=== PATIENT | male | born 1995 | race Caucasian/White ===

== ENCOUNTER 2016-07-02 22:48 | Emergency (ER) | payer OTHER ==
[~2016-07-02] VITALS: Ht 190.5 cm; Wt 77.3 kg
[2016-07-03 00:09] LABS: HEMATOCRIT 40.6 % (38.0-50.0); MCHC 35.5 G/DL (30.0-36.0); MCV 90.2 FL (86-99); MEAN PLAT.VOLUME 10.7 uM^3 (9.0-12.4); PLATELET COUNT 222 K/uL (156-360); RBC DIS.WIDTH-CV 11.3 % (11.8-14.6); RBC DIS.WIDTH-SD 37.2 % (39-53); WHITE BLOOD COUNT 8.5 K/uL (4.1-10.2)
[2016-07-03 00:22] LABS: CHLORIDE 108 mEq/L (99-109); POTASSIUM 3.6 mEq/L (3.7-5.4); SODIUM 141 mEq/L (136-147)
[2016-07-03 00:24] LABS: GLUCOSE 92 mg/dL (70-99)
[2016-07-03 00:25] LABS: ANION GAP 11 MEQ/L (2-14)
[2016-07-03 00:28] LABS: GFR ESTIMATE (CALCULATED) > 59 mL/min/; UREA NITROGEN (BUN) 15 mg/dL (9-23)
[2016-07-03 00:30] LABS: CREATINE KINASE 123 IU/L (1-294)
[2016-07-03 00:34] LABS: ADD MIUA? YES; BILIRUBIN NEGATIVE; BLOOD NEGATIVE; COLOR YELLOW ((YELLOW)); GLUCOSE (STRIP) NEGATIVE; KETONES NEGATIVE; LEUKOCYTES NEGATIVE; NITRITE NEGATIVE; PROTEIN (STRIP) NEGATIVE; SPECIFIC GRAVITY 1.014 (1.000-1.030); UROBILINOGEN 0.2 MG/DL (0.2-1.0)
[2016-07-03 00:39] LABS: AMPHETAMINE NEGATIVE (500 ng/mL); BENZODIAZEPINES NEGATIVE (150 ng/mL); COCAINE NEGATIVE (150 ng/mL); METHADONE NEGATIVE (200 ng/mL); METHAMPHETAMINE NEGATIVE (500 ng/mL); OPIATES (MORPHINE) NEGATIVE (100 ng/mL); PHENCYCLIDINE NEGATIVE (25 ng/mL); THC CANNABINOIDS PRESUMPTIVE POSITIVE (50 ng/mL); TRICYCLIC ANTIDEPRESSANTS NEGATIVE (300 ng/mL)
[2016-07-03 00:40] LABS: ADD MEDTOX COMMENT Y; BARBITURATES NEGATIVE (200 ng/mL); INTERNAL CONTROLS VALID? YES; OXYCODONE NEGATIVE (100 ng/mL); PROPOXYPHENE NEGATIVE (300 ng/mL)
[2016-07-03 00:53] LABS: AMORPHOUS PHOSPHATE CRYSTALS 3+; BACTERIA NONE SEEN /HPF; CASTS NONE SEEN /LPF; CRYSTALS PRESENT; EPITHELIAL CELLS RARE /HPF; MUCUS NONE SEEN /LPF; RED BLOOD CELLS NONE SEEN /HPF (0-5); WHITE BLOOD CELLS RARE /HPF (0-5)
[2016-07-03] MEDS ORDERED: VALIUM5 MG PO (01:20)
[2016-07-03 01:28] VITALS: BP 135/77
== END 2016-07-03 01:28 | disposition home or self-care (01) ==
LOC: RME 22:48 → EME 22:48 → RME 07-03 01:28
PROVIDERS: Physician Assistant
DX: R07.89 Other chest pain (principal); R25.2 Cramp and spasm; I10 Essential (primary) hypertension
CPT/HCPCS: 71020; 80048; 81003; 82550; 84999; 85027; 93005; 99281; 99284